=== PATIENT | male | born 1955 | race Native Hawaiian/Other Pacific Islander ===

== ENCOUNTER → 2022-03-18 | Outpatient (CLI) | payer BC, OTHER | LOC: CT 03-17 16:37 | PROVIDERS: ATTEND Nurse Practitioner Family | DX: M79.662 Pain in left lower leg (principal); M79.661 Pain in right lower leg; I73.9 Peripheral vascular disease, unspecified | CPT/HCPCS: 36415; 82565; 84520 ==